=== PATIENT | male | born 1950 | race Two or more races ===

== ENCOUNTER 2020-08-08 06:12 | Inpatient (IN) | payer OTHER ==
[~2020-08-08] VITALS: Ht 180.3 cm; Wt 96.1 kg
[~2020-08-08 06:12] MED LIST: QUET100T46 PO; WARF2.5T39 PO
[2020-08-08] MEDS ORDERED: ceFAZolin 1GM/50ML 100 ML IV ONE (06:45)
[2020-08-08] MEDS ORDERED: VANCOMYCIN HCL 1000 MG VL ONE (07:33)
[2020-08-08 07:40] LABS: Basophils # (auto) 0 10 ^3/uL (0-0.2); Basophils % (auto) 0.8 % (0.0-2.0); Eosinophils # (auto) 0.1 10 ^3/uL (0-0.8); Eosinophils % (auto) 1.5 % (0.0-7.0); Hematocrit 42.8 % (41.0-53.0); Hemoglobin 14.7 g/dL (13.5-17.5); Lymphocytes % (auto) 24.9 % (10.0-50.0); Mean Corpuscular Hemoglobin 30.7 pg (28.0-32.0); Mean Corpuscular Hgb Conc. 34.4 g/dL (32.0-36.0); Mean Corpuscular Volume 89.3 fL (80.0-100.0); Monocytes # (auto) 0.4 10 ^3/uL (0-1.3); Monocytes % (auto) 10.6 % (0.0-12.0); Neutrophils # (auto) 2.5 10 ^3/uL (1.6-8.6); Neutrophils % (auto) 62.2 % (37.0-80.0); Nucleated Red Blood Cells % 0.1 %; Platelet Count (auto) 182 10^3/uL (140-450); Red Blood Cells 4.79 10^6/uL (4.5-5.90); Red Cell Distribution Width 14.2 % (11.8-14.3)
[2020-08-08] MEDS ORDERED: EPINEPHrine HCL 1 MG/1 ML AMP ONE (07:46)
[2020-08-08] MEDS ORDERED: KETOROLAC TROMETH 30 MG/ML 1ML VIAL ONE (07:55)
[2020-08-08 07:57] LABS: BUN/Creatinine Ratio 24.7; Calcium 8.4 mg/dL (8.5-10.1); Potassium 4.1 mmol/L (3.5-5.1)
[2020-08-08] MEDS ORDERED: BUPIVACAINE 0.25% INJ 50ML VIAL ONE (07:57)
[2020-08-08 08:31] LABS: INR 1.52 (0.9-1.15); Partial Thromboplastin Time 33.1 sec (23.0-31.2)
[2020-08-22] VITALS (15 sets, daily range): BP systolic 117–174; BP diastolic 51–106
[2020-08-22] MEDS ORDERED: TRANEXAMIC ACID 1,000 mg/10ml INJ VIAL IV ONE (07:05)
[2020-08-22] MEDS ORDERED: fentaNYL CITRATE 100 MCG/2 ML VL IV ONE (07:06)
[2020-08-22] MEDS ORDERED: TETRACAINE 1% INJ 2 ML VIAL IJ ONE (07:06)
[2020-08-22] MEDS ORDERED: MORPHINE SULF(PF) 0.5MG/ML 10ML VIAL IV ONE (07:06)
[2020-08-22] MEDS ORDERED: MIDAZOLAM HCL 1MG/1ML-2 ML VIAL IV ONE ×2 (07:11→07:58)
[2020-08-22] MEDS: TRANEXAMIC ACID 20 ML ONE ×2 (07:58→09:15)
[2020-08-22] MEDS ORDERED: DexAMETHasone SOD PHOS 10MG/1ML VIAL INJ IV PRN (08:15)
[2020-08-22] MEDS ORDERED: NALBUPHINE HCL 10 MG/1ml INJECTION SUBCUT ONE (08:15)
[2020-08-22] MEDS ORDERED: HYDROmorphone HCL 2 MG/ML VL IV PRN ×3 (08:15→10:15)
[2020-08-22] MEDS ORDERED: MORPHINE SULFATE 4 MG/ML SYR/VIAL IV PRN (08:15)
[2020-08-22] MEDS ORDERED: MIDAZOLAM HCL 1MG/1ML-2 ML VIAL IV PRN (08:15)
[2020-08-22] MEDS ORDERED: diphenhdrAMINE HCL 50 MG/1 ML VL IV PRN (08:15)
[2020-08-22] MEDS ORDERED: ONDANSETRON HCL 4 MG/2 ML VIAL IV PRN (08:15)
[2020-08-22] MEDS ORDERED: ePHEDrine SULFATE 50 MG/ML AMP IV PRN (08:15)
[2020-08-22] MEDS ORDERED: LABETALOL HCL 5 MG/ML 4ML SYRINGE IV PRN (08:15)
[2020-08-22] MEDS ORDERED: KETOROLAC TROMETH 30 MG/ML 1ML VIAL IV PRN (08:15)
[2020-08-22] MEDS ORDERED: NALOXONE HCL 0.4 MG/ML VIAL IV PRN (08:15)
[2020-08-22] MEDS ORDERED: MORPHINE SULF INJ 2 MG/ML SYRINGE 1ML IV PRN (10:15)
[2020-08-22] MEDS ORDERED: NITROGLYCERIN 0.4 MG SL TAB SL PRN (10:15)
[2020-08-22] MEDS ORDERED: ACETAMINOPHEN 325 MG TAB PO PRN (10:15)
[2020-08-22] MEDS ORDERED: oxyCODONE HCL 5MG TAB PO PRN ×2 (10:15)
[2020-08-22] MEDS ORDERED: ACETAMINOPHEN 325 MG TAB PO SCH ×2 (12:00→21:00)
[2020-08-22] MEDS ORDERED: KETOROLAC TROMETH 30 MG/ML 1ML VIAL IV SCH (12:00)
[2020-08-22] MEDS: D5W/LACTATED RINGERS 1,000 ML IV SCH ×2 (14:05→20:15)
[2020-08-22] MEDS ORDERED: hydrALAZINE HCL 20 MG/ML VL IV PRN (15:00)
[2020-08-22] MEDS ORDERED: ceFAZolin 1GM 2 GM in D5W 5% 100 ML IV SCH (15:00)
[2020-08-22] MEDS ORDERED: DOCUSATE SOD 100 MG CAP PO PRN (17:45)
[2020-08-22] MEDS: PREGABALIN 25 MG CAP PO SCH (22:19)
[2020-08-22] MEDS: KETOROLAC TROMETH 30 MG/ML 1ML VIAL IV SCH (22:19)
[2020-08-22] MEDS: ACETAMINOPHEN 325 MG TAB PO SCH (22:20)
[2020-08-23] VITALS (14 sets, daily range): BP systolic 100–152; BP diastolic 46–94
[2020-08-23] MEDS: KETOROLAC TROMETH 30 MG/ML 1ML VIAL IV SCH ×3 (04:03→16:27)
[2020-08-23] MEDS: ACETAMINOPHEN 325 MG TAB PO SCH ×3 (04:03→16:27)
[2020-08-23] MEDS: D5W/LACTATED RINGERS 1,000 ML IV SCH ×2 (05:32→16:39)
[2020-08-23 08:15] LABS: Basophils # (auto) 0 10 ^3/uL (0-0.2); Basophils % (auto) 0.2 % (0.0-2.0); Eosinophils # (auto) 0 10 ^3/uL (0-0.8); Eosinophils % (auto) 0.1 % (0.0-7.0); Hematocrit 38.5 % (41.0-53.0); Hemoglobin 12.9 g/dL (13.5-17.5); Lymphocytes # (auto) 0.8 10 ^3/uL (0.4-5.4); Lymphocytes % (auto) 6.3 % (10.0-50.0); Mean Corpuscular Hemoglobin 29.9 pg (28.0-32.0); Mean Corpuscular Hgb Conc. 33.5 g/dL (32.0-36.0); Mean Corpuscular Volume 89.3 fL (80.0-100.0); Monocytes # (auto) 0.7 10 ^3/uL (0-1.3); Monocytes % (auto) 5.7 % (0.0-12.0); Neutrophils # (auto) 11.1 10 ^3/uL (1.6-8.6); Neutrophils % (auto) 87.7 % (37.0-80.0); Platelet Count (auto) 161 10^3/uL (140-450); Red Blood Cells 4.31 10^6/uL (4.5-5.90); Red Cell Distribution Width 14.2 % (11.8-14.3); White Blood Cell 12.7 10^3/uL (4.4-10.8)
[2020-08-23 08:28] LABS: BUN/Creatinine Ratio 23.6; Calcium 8.1 mg/dL (8.5-10.1); Potassium 3.7 mmol/L (3.5-5.1)
[2020-08-23 08:38] LABS: INR 1.04 (0.9-1.15)
[2020-08-23] MEDS: PREGABALIN 25 MG CAP PO SCH (10:00)
[2020-08-23] MEDS ORDERED: WARFARIN SODIUM 2.5 MG TAB PO SCH ×2 (10:00→17:00)
[2020-08-23] MEDS ORDERED: ENOXAPARIN SOD 40 MG/0.4 ML SYRINGE SC ONE (12:45)
[2020-08-23] MEDS ORDERED: WARFARIN SODIUM 2.5 MG TAB PO ONE (17:00)
[2020-08-23] MEDS ORDERED: TETRACAINE 1% INJ 2 ML VIAL IJ ONE (21:44)
[2020-08-24] MEDS ORDERED: WARFARIN SODIUM 2.5 MG TAB PO SCH ×2 (10:00→17:00)
== END 2020-08-23 21:45 | disposition home or self-care (01) | DRG 470 ==
LOC: UNDOADMIN 06:12 → OVERFLOW 06:12 → EDSTATUS 07:00 → OVERFLOW 08-22 06:45 → CENTRAL 08-22 11:14
PROVIDERS: ADMIT Orthopaedic Surgery; ATTEND Orthopaedic Surgery
PROC: 0SRC069 Replacement of Right Knee Joint with Oxidized Zirconium on Polyethylene Synthetic Substitute, Cemented, Open Approach (ICD-10-PCS; principal; 2020-08-22 07:21)
DX: M17.11 Unilateral primary osteoarthritis, right knee (principal); D62 Acute posthemorrhagic anemia; Z20.822 Contact with and (suspected) exposure to COVID-19; F32.9 Major depressive disorder, single episode, unspecified; F41.9 Anxiety disorder, unspecified; I10 Essential (primary) hypertension; I25.10 Atherosclerotic heart disease of native coronary artery without angina pectoris; Z86.73 Personal history of transient ischemic attack (TIA), and cerebral infarction without residual deficits; B19.20 Unspecified viral hepatitis C without hepatic coma
CPT/HCPCS: 36415; 71045; 73562; 80048; 85025; 85610; 85730; 86850; 86900; 86901; 97163; G0378; J0171; J0690; J1885; J2250; J3490; J7060

== ENCOUNTER 2021-07-17 06:26 | Inpatient (IN) | payer OTHER, MEDICARE ==
[2021-07-13 11:10] LABS: Urine WBC None Seen /hpf (0 - 3)
[2021-07-13 11:33] LABS: INR 2.03 (0.9-1.15); Partial Thromboplastin Time 44.7 sec (23.6-33.0)
[2021-07-13 12:34] LABS: Urine Bacteria NONE SEEN /hpf (None Seen); Urine Blood Negative /uL (Negative); Urine Mucus FEW (None Seen)
[2021-07-13 13:12] LABS: Potassium 4.4 mmol/L (3.5-5.1)
[2021-07-13 13:18] LABS: Albumin 3.8 g/dL (3.4-5.0); BUN/Creatinine Ratio 14.4; Calcium 8.7 mg/dL (8.5-10.1)
[2021-07-13 13:20] LABS: Bilirubin, Total 0.4 mg/dL (0.2-1.0); Total Protein 7.8 g/dL (6.4-8.2)
[2021-07-13 13:45] LABS: Basophils # (auto) 0.1 10 ^3/uL (0-0.2); Basophils % (auto) 2.2 % (0.0-2.0); Eosinophils # (auto) 0.1 10 ^3/uL (0-0.8); Eosinophils % (auto) 1.3 % (0.0-7.0); Hematocrit 44.1 % (41.0-53.0); Hemoglobin 15.1 g/dL (13.5-17.5); Lymphocytes % (auto) 19.7 % (10.0-50.0); Mean Corpuscular Hemoglobin 30.4 pg (28.0-32.0); Mean Corpuscular Hgb Conc. 34.3 g/dL (32.0-36.0); Mean Corpuscular Volume 88.6 fL (80.0-100.0); Monocytes # (auto) 0.5 10 ^3/uL (0-1.3); Neutrophils # (auto) 3.5 10 ^3/uL (1.6-8.6); Neutrophils % (auto) 67.8 % (37.0-80.0); Nucleated Red Blood Cells % 0.2 %; Red Blood Cells 4.98 10^6/uL (4.5-5.90); Red Cell Distribution Width 14.1 % (11.8-14.3); White Blood Cell 5.2 10^3/uL (4.4-10.8)
[~2021-07-17] VITALS: Ht 180.3 cm; Wt 83.9 kg
[~2021-07-17 06:26] MED LIST changes: -QUET100T46 PO; +QUET100T47 PO
[2021-07-17] MEDS ORDERED: PHENYLEPHRINE HCL 10 MG/ML VL IV ONE (06:27)
[2021-07-17] MEDS ORDERED: ceFAZolin 1GM/50ML 100 ML IV ONE (06:59)
[2021-07-17] MEDS ORDERED: VANCOMYCIN HCL 1000 MG VL ONE (07:07)
[2021-07-17] MEDS ORDERED: ROPIVACAINE 0.5% (5MG/ML) 20ML AMPULE IJ ONE ×2 (07:07→09:19)
[2021-07-17 07:27] LABS: INR 1.05 (0.9-1.15); Partial Thromboplastin Time 32.3 sec (23.6-33.0)
[2021-07-17] MEDS ORDERED: MEPERIDINE HCL (25 MG/ML) 1ML VIAL ONE ×2 (07:39→08:41)
[2021-07-17] MEDS ORDERED: fentaNYL CITRATE 100 MCG/2 ML VL ONE (07:39)
[2021-07-17] MEDS ORDERED: MIDAZOLAM HCL 2MG/2ML 2ml VIAL (1mg/ml) ONE (07:39)
[2021-07-17] MEDS ORDERED: DexAMETHasone SOD PHOS 10MG/1ML VIAL INJ ONE (07:53)
[2021-07-17] MEDS ORDERED: PROPOFOL 10 MG/ML 20 ML IV ONE (07:53)
[2021-07-17] MEDS ORDERED: HYDROmorphone HCL 2 MG/ML VL/or syr IV PRN (08:15)
[2021-07-17] MEDS ORDERED: ONDANSETRON HCL 4 MG/2 ML VIAL IV PRN (08:15)
[2021-07-17] MEDS ORDERED: ePHEDrine SULFATE 50 MG/ML AMP IV PRN (08:15)
[2021-07-17] MEDS ORDERED: MORPHINE SULFATE 4 MG/ML SYR/VIAL IV PRN (08:15)
[2021-07-17] MEDS ORDERED: LABETALOL HCL 5 MG/ML 4ML SYRINGE IV PRN (08:15)
[2021-07-17] MEDS ORDERED: MIDAZOLAM HCL 2MG/2ML 2ml VIAL (1mg/ml) IV PRN (08:15)
[2021-07-17] MEDS ORDERED: ONDANSETRON HCL 4 MG/2 ML VIAL ONE (08:29)
[2021-07-17 10:25] VITALS: BP 145/77
== END 2021-07-17 10:45 | disposition home or self-care (01) | DRG 489 ==
LOC: SUR 06:26 → OVERFLOW 06:27 → SUR 10:50
PROVIDERS: ADMIT Orthopaedic Surgery Adult Reconstructive Orthopaedic Surgery; ATTEND Orthopaedic Surgery
PROC: 0SUV09Z Supplement Right Knee Joint, Tibial Surface with Liner, Open Approach (ICD-10-PCS; 2021-07-17)
PROC: 0SPC09Z Removal of Liner from Right Knee Joint, Open Approach (ICD-10-PCS; principal; 2021-07-17 07:50)
DX: T84.092A Other mechanical complication of internal right knee prosthesis, initial encounter (principal); I10 Essential (primary) hypertension; F41.9 Anxiety disorder, unspecified; Z20.822 Contact with and (suspected) exposure to COVID-19; Z96.651 Presence of right artificial knee joint; M25.361 Other instability, right knee; G47.00 Insomnia, unspecified; Y83.8 Other surgical procedures as the cause of abnormal reaction of the patient, or of later complication, without mention of misadventure at the time of the procedure; Z95.0 Presence of cardiac pacemaker; Y92.89 Other specified places as the place of occurrence of the external cause
CPT/HCPCS: 36415; 80053; 81001; 85025; 85610; 85730; 86850; 86900; 86901; G0378; J0690; J1100; J2250; J2405; J2704